=== PATIENT | female | born 1990 | race Caucasian/White ===

== ENCOUNTER 2021-03-21 18:59 | Emergency (ER) | payer OTHER ==
[~2021-03-21 18:59] MED LIST: BACTROBAN CREAM15 GM TOP; BENADRYL 50MG C50 MG PO; BENTYL 20MG TAB20 MG PO; BUSPIRONE HCL30 MG PO; CLARITIN 10MG T10 MG PO; GEODON40 MG PO; GEODON60 MG PO; GLUCOPHAGE 500500 MG PO; HYDROXYZINE HCL50 MG PO; KEFLEX CAP 500500 MG PO; LODINE CAP 300300 MG PO; MINIPRESS CAP 11 MG PO; PAROXETINE HCL40 MG PO; PERCOCET 5-3251 EACH PO; PROPRANOLOL HCL10 MG PO; VISTARIL 50 MG50 MG PO; VITAMIN D350000 UNIT PO; ZOFRAN ODT 4 MG4 MG SL; ZOFRAN4 MG PO
== END 2021-03-21 21:33 | disposition left against medical advice (07) ==
LOC: ER1 18:59
DX: Z53.21 Procedure and treatment not carried out due to patient leaving prior to being seen by health care provider (principal)

== ENCOUNTER 2021-04-13 11:55 | Emergency (ER) | payer OTHER ==
[2021-04-13] MEDS ORDERED: HYDROCODONE-AC1 EACH PO (16:17)
[2021-04-13] MEDS ORDERED: NAPROXEN500 MG PO (16:22)
== END 2021-04-13 16:35 | disposition home or self-care (01) ==
LOC: ER1 11:55
DX: S02.2XXA Fracture of nasal bones, initial encounter for closed fracture (principal); F17.210 Nicotine dependence, cigarettes, uncomplicated; Y04.0XXA Assault by unarmed brawl or fight, initial encounter
CPT/HCPCS: 70450; 70486; 99283